=== PATIENT | female | born 1980 | race African-American/Black ===

== ENCOUNTER 2018-05-01 16:45 | Emergency (ER) | payer SELFPAY ==
[2018-05-01] MEDS ORDERED: predniSONE 20 MG TAB ONE (17:04)
--- NOTE | 2018-05-01 18:11 | RAD ---
PA AND LATERAL OF THE CHEST: 05/01/18 INDICATION: Cough for two weeks. COMPARISON: Prior exam dated 03/29/17. IMPRESSION: No acute cardiopulmonary abnormality. Examination does not appear to be changed from the comparison. POS: [facility]
== END 2018-05-01 17:45 | disposition home or self-care (01) ==
LOC: BURERS 16:45
DX: J06.9 Acute upper respiratory infection, unspecified (principal); F17.210 Nicotine dependence, cigarettes, uncomplicated; J45.909 Unspecified asthma, uncomplicated
CPT/HCPCS: 71046; 93005; J7506; J7620

== ENCOUNTER 2019-02-09 11:08 | Emergency (ER) | payer SELFPAY | END 2019-02-09 12:10 | disposition home or self-care (01) | LOC: BURERS 11:08 | DX: O21.0 Mild hyperemesis gravidarum (principal); O99.341 Other mental disorders complicating pregnancy, first trimester; J45.909 Unspecified asthma, uncomplicated; O99.331 Smoking (tobacco) complicating pregnancy, first trimester; F17.210 Nicotine dependence, cigarettes, uncomplicated; Z79.899 Other long term (current) drug therapy; Z3A.12 12 weeks gestation of pregnancy | CPT/HCPCS: 93005 ==

== ENCOUNTER 2019-02-09 19:45 | Emergency (ER) | payer SELFPAY ==
[2019-02-09] MEDS ORDERED: Ondansetron ODT 4 MG TAB ONE (20:14)
[2019-02-09 20:32] LABS: Clarity Cloudy (Clear); Glucose, Urine (Dipstick) Negative (Negative); Leukocyte Small (Negative); Nitrite Negative (Negative); Protein, Urine (Dipstick) 100 mg/dL (Neg-Trace); Specific Gravity, Urine 1.015 (1.005-1.030); pH, Urine Greater than 9.0 (5.0-9.0)
[2019-02-09 20:33] LABS: Bilirubin Negative (Negative); Blood, Urine Negative (Negative)
[2019-02-09 20:37] LABS: Bacteria/HPF 3+ HPF (None Seen); Oval Fat Bodies/HPF None Seen HPF (None Seen); RBC/HPF None Seen HPF (0-3); Renal Epithelial None Seen HPF (0-3); Sperm/HPF None Seen HPF (None Seen); Transitional Epithelial NONE SEEN HPF (0-3); Trichomonas/HPF None Seen HPF (None Seen); WBC/HPF 0-3 HPF (0-3); Yeast-All Forms None Seen HPF (None Seen)
[2019-02-09 20:38] LABS: Crystals/HPF 2+ AMORPH PHOS HPF (Negative); Hyaline Casts/LPF NONE SEEN LPF (0-3 Hyaline); Other Casts/LPF None Seen LPF (0-3 Hyaline)
[2019-02-09 20:58] LABS: ALT (SGPT) 9 U/L (8-55); AST (SGOT) 15 U/L (5-34); Albumin 4.1 g/dL (3.5-5.0); Alkaline Phosphatase 35 U/L (40-150); Anion Gap 15 mmol/L (10-20); BUN (Urea Nitrogen) 9 mg/dL (7.0-18.7); Bilirubin, Total Less than 0.2 mg/dL (0.2-1.2); Calc. Creatinine Clearance 0 mL/min (70-130); Calcium 9.8 mg/dL (7.8-10.44); Carbon Dioxide 26 mmol/L (22-29); Chloride 101 mmol/L (98-107); Estimated GFR-MDRD Greater than 90; Glucose 81 mg/dL (70-105); Potassium 3.6 mmol/L (3.5-5.1); Protein, Total 7.1 g/dL (6.0-8.3); Sodium 138 mmol/L (136-145)
[2019-02-09 21:02] LABS: Eosinophils 4 % (0-10); Hemoglobin 11.7 g/dL (12.0-16.0); Lymphocytes 28 % (21-51); MDiff Complete? YES; Mean Corpuscular HGB CONC 31.9 g/dL (32.0-36.0); Mean Corpuscular Hemoglobin 30.4 pg (27.0-31.0); Mean Corpuscular Volume 95.2 fL (78.0-98.0); Monocytes 7 % (0-10); Neutrophil 61 % (42-75); Platelet Count 261 thou/uL (130-400); RBC Distribution Width 12.7 % (11.5-14.5); Red Blood Cell (RBC) Count 3.86 mill/uL (4.20-5.40); Small Platelets SLIGHT
[2019-02-09] MEDS ORDERED: Promethazine HCl 25 MG/ML VIAL ONE (21:54)
== END 2019-02-09 22:04 | disposition home or self-care (01) ==
LOC: BURERS 19:45
DX: O21.0 Mild hyperemesis gravidarum (principal); O99.511 Diseases of the respiratory system complicating pregnancy, first trimester; J45.909 Unspecified asthma, uncomplicated; O99.331 Smoking (tobacco) complicating pregnancy, first trimester; F17.210 Nicotine dependence, cigarettes, uncomplicated; Z3A.12 12 weeks gestation of pregnancy
CPT/HCPCS: 80053; 81003; 81015; 85025; 87077; 87086; 96360; 96372; J2550; Q0162

== ENCOUNTER 2022-09-30 07:33 | Emergency (ER) | payer MEDICAID, SELFPAY ==
[2022-09-30] MEDS ORDERED: Bicillin LA 1.2 MILLION UNITS/2 ML SYRINGE ONE (08:18)
== END 2022-09-30 08:22 | disposition home or self-care (01) ==
LOC: BURERS 07:33
DX: J02.9 Acute pharyngitis, unspecified (principal); I10 Essential (primary) hypertension; F17.210 Nicotine dependence, cigarettes, uncomplicated
CPT/HCPCS: 96372; 99283; J0561